=== PATIENT | female | born 1965 | race Caucasian/White ===

== ENCOUNTER → 2016-11-05 | Outpatient (REF) | payer OTHER | LOC: M SFHCLERA 15:28 | PROVIDERS: ATTEND Physician Assistant | DX: M54.2 Cervicalgia (principal) ==

== ENCOUNTER → 2016-11-08 | Outpatient (CLI) | payer SELFPAY ==
[2016-11-08 14:59] LABS: BASO # 0.1 K/mm3 (0.0-0.2); BASO % 0.5 % (0.0-1.0); EOS # 0.2 K/mm3 (0.0-0.50); EOS % 1.3 % (0.0-3.0); LARGE UNSTAINED CELL # 0.1 K/mm3 (0.0-0.4); LYMPH # 2.6 K/mm3 (1.5-4.5); LYMPH % 19.5 % (24.0-44.0); MEAN CORPUSCULAR HEMOGLOBIN 30.4 pg (27.0-33.0); MEAN CORPUSCULAR HGB CONC 33.8 g/dl (32.0-36.5); MONO # 0.6 K/mm3 (0.0-0.8); MONO % 5.1 % (0.0-5.0); NEUTROPHILS # 9.2 K/mm3 (1.8-7.7); NEUTROPHILS % 72.6 % (36.0-66.0); PLATELET COUNT, AUTOMATED 252 k/mm3 (150-450); RED CELL DISTRIBUTION WIDTH 12.2 % (11.5-14.5); WHITE BLOOD COUNT 12.6 K/mm3 (4.0-10.0)
[2016-11-08 15:40] LABS: ALBUMIN 3.9 GM/DL (3.2-5.2); ALBUMIN/GLOBULIN RATIO 0.98 (1.00-1.93); ALKALINE PHOSPHATASE 71 U/L (45-117); ALT/SGPT 18 U/L (12-78); ANION GAP 8 MEQ/L (8-16); AST/SGOT 10 U/L (15-37); BILIRUBIN,TOTAL 0.6 MG/DL (0.2-1.0); BLOOD UREA NITROGEN 7 MG/DL (7-18); CALCIUM LEVEL 9.2 MG/DL (8.5-10.1); CARBON DIOXIDE LEVEL 29 MEQ/L (21-32); CHLORIDE LEVEL 102 MEQ/L (98-107); CREATININE FOR GFR 0.79 MG/DL (0.55-1.02); GLOMERULAR FILTRATION RATE > 60.0 (>51); GLUCOSE, FASTING 95 MG/DL (70-105); POTASSIUM SERUM 3.1 MEQ/L (3.5-5.1); SODIUM LEVEL 139 MEQ/L (136-145); TOTAL PROTEIN 7.9 GM/DL (6.4-8.2)
--- NOTE | 2016-11-08 17:08 | REP ---
CT NECK WITH CONTRAST: HISTORY: Right neck swelling. CONTRAST: Isovue-370, 75 mL There is slight enlargement of the right submandibular and sublingual glands. There is mild heterogeneous enhancement of the glands. Increased density is present in the right submandibular and parapharyngeal spaces. There is minimal thickening of the right platysma muscle. A small amount of stranding is present in the overlying subcutaneous tissue. These findings are consistent with edema. The naso- and hypopharynx, larynx and subglottic trachea are normal in appearance. The parotid, left submandibular and thyroid glands are normal. An enlarged lymph node 1.4 cm in width is present in the right internal jugular chain at the level of the pb- and hypopharynx. Small lymph nodes less than 1 cm in size are present in the left internal jugular chains, posterior triangles, submandibular and submental areas. Degenerative change is present in the cervical spine. Scarring is present in the lung __ apices. Minimal mucosal thickening is present in the left ethmoid sinus. IMPRESSION: The above findings are consistent with right submandibular and sublingual sialadenitis. Signed by Camron Vinson MD 11/08/2016 05:14 P
== END ==
LOC: M LAB 14:28
PROVIDERS: ATTEND Physician Assistant Medical
DX: R22.1 Localized swelling, mass and lump, neck (principal)

== ENCOUNTER 2021-07-22 09:27 | Emergency (ER) | payer SELFPAY ==
[~2021-07-22] VITALS: Ht 162.6 cm; Wt 58.7 kg
[2021-07-22] MEDS ORDERED: LEXA1TAB PO (09:57)
[2021-07-22 10:59] LABS: BASO # 0.1 10^3/uL (0.0-0.2); EOS # 0.2 10^3/uL (0.0-0.5); EOS % 2.2 % (0.0-3.0); HEMATOCRIT 41.9 % (36.0-47.0); HEMOGLOBIN 13.7 g/dl (12.0-15.5); LYMPH # 2.8 10^3/uL (1.5-5.0); LYMPH % 28.6 % (24.0-44.0); MEAN CORPUSCULAR HEMOGLOBIN 29.5 pg (27.0-33.0); MEAN CORPUSCULAR HGB CONC 32.7 g/dl (32.0-36.5); MEAN CORPUSCULAR VOLUME 90.3 fl (80.0-96.0); MONO # 0.6 10^3/uL (0.0-0.8); MONO % 6.2 % (2.0-8.0); NEUTROPHILS % 61.7 % (36.0-66.0); PLATELET COUNT, AUTOMATED 283 10^3/uL (150-450); RED BLOOD COUNT 4.64 10^6/uL (4.00-5.40); WHITE BLOOD COUNT 9.7 10^3/uL (4.0-10.0)
[2021-07-22 11:27] LABS: BLOOD UREA NITROGEN 10 MG/DL (7-18); CALCIUM LEVEL 9.3 MG/DL (8.5-10.1); CARBON DIOXIDE LEVEL 25 MEQ/L (21-32); CHLORIDE LEVEL 109 MEQ/L (98-107); CREATININE FOR GFR 0.75 MG/DL (0.55-1.30); GLOMERULAR FILTRATION RATE > 60.0 (>51); GLUCOSE, FASTING 97 MG/DL (70-100); SODIUM LEVEL 139 MEQ/L (136-145)
[2021-07-22] MEDS ORDERED: KETOROLAC 30 MG/ML 1ML VIAL IV ONE (13:25)
[2021-07-22 14:13] LABS: ALBUMIN 3.7 GM/DL (3.2-5.2); ALT/SGPT 19 U/L (12-78); AMYLASE 56 U/L (25-115); BILIRUBIN,DIRECT 0.1 MG/DL (0.0-0.2); BILIRUBIN,TOTAL 0.4 MG/DL (0.2-1.0); LIPASE 67 U/L (73-393); TOTAL PROTEIN 7.3 GM/DL (6.4-8.2)
[2021-07-22] MEDS ORDERED: ISOVUE-370 76% 100ML VIAL As Ordered ONE (14:32)
[2021-07-22 14:57] VITALS: BP 170/73
[2021-07-22 15:54] LABS: C REACTIVE PROTEIN QUANTITATIV 0.45 MG/DL (0.00-0.30)
[2021-07-22 17:00] LABS: ERYTHROCYTE SEDIMENTATION RATE 41 mm/hr (0-30)
== END 2021-07-22 16:20 | disposition home or self-care (01) ==
LOC: M ED 09:27
DX: R10.9 Unspecified abdominal pain (principal); R06.2 Wheezing; I10 Essential (primary) hypertension; I79.1 Aortitis in diseases classified elsewhere; R11.0 Nausea; R19.7 Diarrhea, unspecified; Z79.899 Other long term (current) drug therapy
CPT/HCPCS: 71046; 74177; 80048; 80076; 81001; 82150; 83690; 85025; 85652; 86140; 96374; 99284; J1885; Q9967; U0003

== ENCOUNTER → 2021-07-28 | Outpatient (CLI) | payer SELFPAY ==
[~2021-07-28] MED LIST: LEXA1TAB PO
[2021-07-28 13:36] LABS: BASO # 0.1 10^3/uL (0.0-0.2); BASO % 0.7 % (0.0-1.0); EOS # 0.1 10^3/uL (0.0-0.5); EOS % 0.7 % (0.0-3.0); HEMATOCRIT 46.5 % (36.0-47.0); HEMOGLOBIN 15.2 g/dl (12.0-15.5); LYMPH # 2.2 10^3/uL (1.5-5.0); MEAN CORPUSCULAR HEMOGLOBIN 29.9 pg (27.0-33.0); MEAN CORPUSCULAR HGB CONC 32.7 g/dl (32.0-36.5); MEAN CORPUSCULAR VOLUME 91.5 fl (80.0-96.0); MONO # 0.6 10^3/uL (0.0-0.8); MONO % 5.8 % (2.0-8.0); NEUTROPHILS # 7.9 10^3/uL (1.5-8.5); NEUTROPHILS % 72.5 % (36.0-66.0); PLATELET COUNT, AUTOMATED 291 10^3/uL (150-450); RED BLOOD COUNT 5.08 10^6/uL (4.00-5.40); WHITE BLOOD COUNT 10.9 10^3/uL (4.0-10.0)
[2021-07-28 14:05] LABS: ALT/SGPT 17 U/L (12-78); BILIRUBIN,TOTAL 0.3 MG/DL (0.2-1.0); BLOOD UREA NITROGEN 7 MG/DL (7-18); CALCIUM LEVEL 9.9 MG/DL (8.5-10.1); CARBON DIOXIDE LEVEL 28 MEQ/L (21-32); CHLORIDE LEVEL 104 MEQ/L (98-107); CREATININE FOR GFR 0.85 MG/DL (0.55-1.30); GLOMERULAR FILTRATION RATE > 60.0 (>51); GLUCOSE, FASTING 97 MG/DL (70-100); POTASSIUM SERUM 3.9 MEQ/L (3.5-5.1); SODIUM LEVEL 141 MEQ/L (136-145); TOTAL PROTEIN 7.9 GM/DL (6.4-8.2)
== END ==
LOC: M PLAIMG 10:02
PROVIDERS: ATTEND Physician Assistant
DX: R09.81 Nasal congestion (principal)
CPT/HCPCS: 36415; 71046; 80053; 85025; 87505; U0003

== ENCOUNTER → 2023-02-12 | Outpatient (CLI) | payer OTHER ==
[2023-02-12 09:13] LABS: BASO # 0.1 10^3/uL (0.0-0.2); EOS # 0.4 10^3/uL (0.0-0.5); EOS % 4.3 % (0.0-3.0); HEMATOCRIT 43.8 % (36.0-47.0); HEMOGLOBIN 14.1 g/dl (12.0-15.5); LYMPH # 2.4 10^3/uL (1.5-5.0); LYMPH % 27.5 % (24.0-44.0); MEAN CORPUSCULAR HEMOGLOBIN 30.1 pg (27.0-33.0); MEAN CORPUSCULAR HGB CONC 32.2 g/dl (32.0-36.5); MEAN CORPUSCULAR VOLUME 93.6 fl (80.0-96.0); MONO # 0.6 10^3/uL (0.0-0.8); MONO % 6.7 % (2.0-8.0); NEUTROPHILS # 5.3 10^3/uL (1.5-8.5); NEUTROPHILS % 60.3 % (36.0-66.0); PLATELET COUNT, AUTOMATED 265 10^3/uL (150-450); RED BLOOD COUNT 4.68 10^6/uL (4.00-5.40); WHITE BLOOD COUNT 8.8 10^3/uL (4.0-10.0)
[2023-02-12 09:36] LABS: ALBUMIN 3.9 G/DL (3.2-5.2); ALKALINE PHOSPHATASE 73 U/L (46-116); ALT/SGPT 10 U/L (7.0-40); AST/SGOT < 8 U/L (<34); BILIRUBIN,TOTAL 0.5 MG/DL (0.3-1.2); BLOOD UREA NITROGEN 17 MG/DL (9-23); CALCIUM LEVEL 9.7 MG/DL (8.5-10.1); CARBON DIOXIDE LEVEL 27 MMOL/L (20-31); CHLORIDE LEVEL 109 MMOL/L (98-107); CHOLESTEROL LEVEL 246 MG/DL (<200); CHOLESTEROL RISK RATIO 6.89 (<5); CREATININE FOR GFR 0.83 MG/DL (0.55-1.30); GLOMERULAR FILTRATION RATE > 60.0 (>51); GLUCOSE, FASTING 103 MG/DL (60-100); HDL CHOLESTEROL 35.7 MG/DL (>40); LDL CHOLESTEROL 179.9 MG/DL (<100); NON-HDL-C 210.3 MG/DL; POTASSIUM SERUM 4.4 MMOL/L (3.5-5.1); SODIUM LEVEL 145 MMOL/L (136-145); TOTAL PROTEIN 7.2 G/DL (5.7-8.2); TRIGLYCERIDES LEVEL 152 MG/DL (<150)
[2023-02-12 09:38] LABS: FREE T4 0.96 NG/DL (0.89-1.76); THYROID STIMULATING HORMONE 0.666 uIU/ML (0.55-4.78)
== END ==
LOC: M RAD 08:10
PROVIDERS: ATTEND Physician Assistant Medical
DX: F17.210 Nicotine dependence, cigarettes, uncomplicated (principal); E55.9 Vitamin D deficiency, unspecified

== ENCOUNTER → 2023-02-17 | Outpatient (CLI) | payer OTHER | LOC: M PLAIMG 09:45 | PROVIDERS: ATTEND Physician Assistant Medical | DX: M47.816 Spondylosis without myelopathy or radiculopathy, lumbar region (principal); M54.50 Low back pain, unspecified ==

== ENCOUNTER → 2023-03-11 | Outpatient (CLI) | payer OTHER | LOC: M CARPUL 11:00 | PROVIDERS: ATTEND Physician Assistant Medical | DX: R01.1 Cardiac murmur, unspecified (principal) ==

== ENCOUNTER → 2023-03-28 | Outpatient (CLI) | payer OTHER | LOC: M CARPUL 10:36 | PROVIDERS: ATTEND Physician Assistant Medical | DX: F17.210 Nicotine dependence, cigarettes, uncomplicated (principal); J44.9 Chronic obstructive pulmonary disease, unspecified ==

== ENCOUNTER 2023-06-13 12:51 | Day surgery (SDC) | payer OTHER ==
[~2023-06-13] VITALS: Ht 162.6 cm; Wt 54.2 kg
[~2023-06-13 12:51] MED LIST changes: +MELO15TA28 PO; +NS 1,000 ML IV ONE; +VITAD400CA PO
[2023-06-13] MEDS ORDERED: propofoL 200 MG/20 ML VIAL As Ordered ONE (13:18)
[2023-06-13] MEDS ORDERED: LIDOCAINE 2% 100MG/5ML SDV (FOR ANES.) As Ordered ONE (13:18)
[2023-06-13] MEDS ORDERED: CELE10TA PO (14:07)
[2023-06-13] MEDS ORDERED: fentaNYL 100 MCG/2 ML INJECTION As Ordered ONE (14:41)
[2023-06-13 15:18] VITALS: TEMP 97
[2023-06-13 15:35] VITALS: BP 135/65; O2SAT 98
== END 2023-06-13 15:48 | disposition home or self-care (01) ==
LOC: M OPP 12:51
PROVIDERS: ATTEND Internal Medicine Gastroenterology
DX: Z86.010 Personal history of colon polyps (principal); K63.5 Polyp of colon; K31.89 Other diseases of stomach and duodenum; K29.50 Unspecified chronic gastritis without bleeding; R11.0 Nausea; E78.5 Hyperlipidemia, unspecified; M19.90 Unspecified osteoarthritis, unspecified site; G62.9 Polyneuropathy, unspecified; F17.210 Nicotine dependence, cigarettes, uncomplicated; Z79.899 Other long term (current) drug therapy; Z80.1 Family history of malignant neoplasm of trachea, bronchus and lung; Z80.52 Family history of malignant neoplasm of bladder; Z83.3 Family history of diabetes mellitus; Z80.3 Family history of malignant neoplasm of breast; Z82.69 Family history of other diseases of the musculoskeletal system and connective tissue
CPT/HCPCS: 43239; 45385; 88305; J3010

== ENCOUNTER → 2023-12-29 | Outpatient (REF) | payer OTHER ==
[~2023-12-29] MED LIST changes: +CELE10TA PO; -NS 1,000 ML IV ONE
[2023-12-29 15:08] LABS: ALBUMIN 3.7 G/DL (3.2-5.2); ALKALINE PHOSPHATASE 63 U/L (46-116); ALT/SGPT 15 U/L (7.0-40); AST/SGOT 10 U/L (<34); BILIRUBIN,TOTAL 0.4 MG/DL (0.3-1.2); BLOOD UREA NITROGEN 23 MG/DL (9-23); CALCIUM LEVEL 9.7 MG/DL (8.3-10.6); CARBON DIOXIDE LEVEL 30 MMOL/L (20-31); CHLORIDE LEVEL 108 MMOL/L (98-107); CHOLESTEROL LEVEL 138 MG/DL (<200); CHOLESTEROL RISK RATIO 3.84 (<5); CREATININE FOR GFR 0.89 MG/DL (0.55-1.30); GLOMERULAR FILTRATION RATE > 60.0 (>45); GLUCOSE, FASTING 102 MG/DL (74-106); HDL CHOLESTEROL 35.9 MG/DL (>40); LDL CHOLESTEROL 64.1 MG/DL (<100); NON-HDL-C 102.1 MG/DL; POTASSIUM SERUM 3.5 MMOL/L (3.5-5.1); SODIUM LEVEL 144 MMOL/L (136-145); TOTAL PROTEIN 6.5 G/DL (5.7-8.2); TRIGLYCERIDES LEVEL 190 MG/DL (<150)
[2023-12-29 15:14] LABS: TOTAL 25(OH) VITAMIN D 23.3 NG/ML (20.0-100.0)
== END ==
LOC: M SFHCADAM 10:34
PROVIDERS: ATTEND Physician Assistant Medical
DX: E78.2 Mixed hyperlipidemia (principal); E55.9 Vitamin D deficiency, unspecified

== ENCOUNTER → 2024-01-17 | Outpatient (CLI) | payer OTHER | LOC: M WHC 14:20 | PROVIDERS: ATTEND Physician Assistant Medical | DX: Z12.31 Encounter for screening mammogram for malignant neoplasm of breast (principal); M81.0 Age-related osteoporosis without current pathological fracture ==

== ENCOUNTER → 2024-07-25 | Outpatient (REF) | payer OTHER | LOC: M SFHCPLAZ 15:10 | PROVIDERS: ATTEND Physician Assistant Medical | DX: J06.9 Acute upper respiratory infection, unspecified (principal) ==

== ENCOUNTER → 2024-08-21 | Outpatient (CLI) | payer SELFPAY ==
[2024-08-21 10:30] LABS: BASO % 0.7 % (0.0-1.0); EOS # 0.1 10^3/uL (0.0-0.5); EOS % 1.1 % (0.0-3.0); HEMATOCRIT 38.7 % (36.0-47.0); HEMOGLOBIN 12.5 g/dl (12.0-15.5); LYMPH # 1.6 10^3/uL (1.5-5.0); LYMPH % 26.4 % (24.0-44.0); MEAN CORPUSCULAR HEMOGLOBIN 30.6 pg (27.0-33.0); MEAN CORPUSCULAR HGB CONC 32.3 g/dl (32.0-36.5); MEAN CORPUSCULAR VOLUME 94.9 fl (80.0-96.0); MONO # 0.4 10^3/uL (0.0-0.8); MONO % 6.9 % (2.0-8.0); NEUTROPHILS % 64.7 % (36.0-66.0); PLATELET COUNT, AUTOMATED 376 10^3/uL (150-450); RED BLOOD COUNT 4.08 10^6/uL (4.00-5.40); WHITE BLOOD COUNT 6.1 10^3/uL (4.0-10.0)
[2024-08-21 10:46] LABS: ERYTHROCYTE SEDIMENTATION RATE 50 mm/hr (0-30)
== END ==
LOC: M RAD 08:29
PROVIDERS: ATTEND Physician Assistant Medical
DX: M54.50 Low back pain, unspecified (principal)

== ENCOUNTER → 2024-08-24 | Outpatient (CLI) | payer SELFPAY | LOC: M PLAIMG 08:16 | PROVIDERS: ATTEND Physician Assistant Medical | DX: M54.50 Low back pain, unspecified (principal) ==